=== PATIENT | male | born 1950 | race Caucasian/White ===

== ENCOUNTER → 2019-05-07 | Outpatient (CLI) | payer BC ==
[~2019-05-07] MED LIST: ASCO10004 PO; ASPI-496 PO; ATOR40TA78 PO; FINA5TAB4 PO; LOSA25TA25 PO; NITR50CA11 PO; OMEG10007 PO; TAMS-11 PO
[2019-05-07 14:27] LABS: BASOPHILS # (AUTO) 0.07 x10^3/uL (0-0.1); BASOPHILS % (AUTO) 1 % (0-1); EOSINOPHILS # (AUTO) 0.47 x10^3/uL (0-0.4); EOSINOPHILS % (AUTO) 9 % (1-7); LYMPHOCYTES # (AUTO) 1.51 x10^3/uL (1-3.4); LYMPHOCYTES % (AUTO) 28 % (22-44); MD NO; MEAN CORPUSCULAR HEMOGLOBIN 31.7 pg (27.5-34.5); MEAN CORPUSCULAR HGB CONC 33.9 g/dL (33.2-36.2); MEAN CORPUSCULAR VOLUME 93.5 fL (81-97); MEAN PLATELET VOLUME 9.4 fL (7.4-10.4); MONOCYTES # (AUTO) 0.69 x10^3/uL (0.2-0.8); MONOCYTES % (AUTO) 13 % (2-9); NEUTROPHILS # (AUTO) 2.58 x10^3/uL (1.8-6.8); NEUTROPHILS % (AUTO) 48 % (42-75); PLATELET COUNT 166 x10^3/uL (130-400); RED BLOOD COUNT 5.43 x10^6/uL (4.38-5.82); RED CELL DISTRIBUTION WIDTH 14.1 % (9.4-14.8)
[2019-05-07 14:33] LABS: MICROSCOPIC NOT IND
[2019-05-07 14:39] LABS: ANION GAP 5 mmol/L (5-15); CALCIUM 8.7 mg/dL (8.5-10.1); CHLORIDE 104 mmol/L (98-107)
[2019-05-07 14:42] LABS: ALANINE AMINOTRANSFERASE 68 U/L (12-78); ALKALINE PHOSPHATASE 129 U/L (45-117); BILIRUBIN,TOTAL 1.5 mg/dL (0.2-1.0); CREATININE 0.85 mg/dL (0.7-1.3); TOTAL PROTEIN 7.9 g/dL (6.4-8.2)
[2019-05-07 15:20] LABS: INTERNATIONAL NORMALIZED RATIO 1.05 (0.93-1.1)
== END | disposition home or self-care (01) ==
LOC: STAR 12:45
PROVIDERS: ATTEND Urology
DX: Z01.818 Encounter for other preprocedural examination (principal); N40.1 Benign prostatic hyperplasia with lower urinary tract symptoms; Z87.891 Personal history of nicotine dependence; Z82.49 Family history of ischemic heart disease and other diseases of the circulatory system
CPT/HCPCS: 36415; 80053; 81003; 85025; 85610; 85730; 87086; 93005

== ENCOUNTER 2019-05-14 08:55 | Inpatient (IN) | payer BC, MEDICARE ==
[~2019-05-14] VITALS: Ht 172.7 cm; Wt 100.0 kg
[~2019-05-14 08:55] MED LIST changes: +CEFAZOLIN 1,000 MG ONE; +FENTANYL PF 250 MCG/5ML ONE; +GLYCOPYRROLATE 0.2MG/1ML, 5ML ONE; +MIDAZOLAM 1 MG/ML, 2ML ONE; +NEOSTIGMINE 1 MG/ML, 10ML ONE; +PROPOFOL 10 MG/ML, 20ML ONE; +ROCURONIUM 10MG/ML,5ML ONE
[2019-05-14 09:28] VITALS: BP 138/92
[2019-05-14] MEDS ORDERED: ACETAMINOPHEN 500 MG TABLET PO ONE (09:30)
[2019-05-14] MEDS ORDERED: LACTATED RINGERS 1,000 ML IV SCH (09:30)
[2019-05-14] MEDS ORDERED: GABAPENTIN 300 MG CAPSULE PO ONE (09:30)
[2019-05-14] MEDS ORDERED: BUPIVACAINE/PF 0.25% ONE (10:59)
[2019-05-14] MEDS ORDERED: EPINEPHRINE 1 MG/ML, 1ML ONE (10:59)
[2019-05-14] MEDS ORDERED: OPIUM/BELLADONNA SUPP.RECT 16.2-60 MG ONE ×2 (10:59→17:08)
[2019-05-14] MEDS ORDERED: INDIGO CARMINE 0.8%, 5ML ONE (10:59)
[2019-05-14] MEDS ORDERED: THROMBIN (RECOMBINANT) 5,000 UNIT VIAL TP ONE (11:23)
[2019-05-14] MEDS ORDERED: ONDANSETRON 2MG/ML, 2ML IV PRN ×2 (12:30→19:00)
[2019-05-14] MEDS ORDERED: OXYcodone 5 MG/5 ML ORAL.SOL UDC PO PRN (12:30)
[2019-05-14] MEDS ORDERED: HYDROmorphone 2 MG/ML, 1ML IVPush PRN (12:30)
[2019-05-14] MEDS ORDERED: FENTANYL PF 100 MCG/2ML IV PRN (12:30)
[2019-05-14] MEDS ORDERED: MEPERIDINE/PF 25MG/ML,1ML IVPush PRN (12:30)
[2019-05-14] MEDS ORDERED: hydrALAzine 20 MG/ML, 1ML IV PRN (12:30)
[2019-05-14] MEDS ORDERED: LABETALOL 5MG/ML, 20ML IV PRN (12:30)
[2019-05-14] MEDS ORDERED: MORPHINE SULFATE 4 MG/ML, 1ML IVPush PRN (12:30)
[2019-05-14] MEDS ORDERED: ALBUTEROL SULFATE 2.5 MG/3 ML NPPB PRN (12:30)
[2019-05-14] MEDS ORDERED: ROCURONIUM 10MG/ML,5ML ONE (13:05)
[2019-05-14] MEDS ORDERED: FENTANYL PF 100 MCG/2ML ONE ×3 (14:57→15:27)
[2019-05-14] MEDS ORDERED: OPIUM/BELLADONNA SUPP.RECT 16.2-60 MG PR PRN ×2 (17:30→19:00)
[2019-05-14 17:41] VITALS: BP 134/90
[2019-05-14] MEDS: ACETAMINOPHEN 500 MG TABLET PO SCH (18:48)
[2019-05-14] MEDS ORDERED: OXYcodone IR 5MG TABLET PO PRN (19:00)
[2019-05-14 19:31] VITALS: BP 139/89
[2019-05-14] MEDS: D5%-0.45NACL+KCL 20MEQ 1,000 ML IV SCH (19:48)
[2019-05-14] MEDS: ATORVASTATIN 40 MG TABLET PO SCH (20:39)
[2019-05-15 00:20] VITALS: BP 104/71
[2019-05-15] MEDS: D5%-0.45NACL+KCL 20MEQ 1,000 ML IV SCH ×3 (03:38→19:48)
[2019-05-15] MEDS: ACETAMINOPHEN 500 MG TABLET PO SCH ×3 (03:38→19:47)
[2019-05-15] MEDS ORDERED: OPIUM/BELLADONNA SUPP.RECT 16.2-60 MG PR PRN (05:00)
[2019-05-15 07:58] VITALS: BP 112/78
[2019-05-15] MEDS ORDERED: LOSARTAN 25MG TABLET PO SCH (09:00)
[2019-05-15 14:01] VITALS: BP 111/56
[2019-05-15] MEDS ORDERED: SENN-129 PO (14:40)
[2019-05-15 19:27] VITALS: BP 111/75
[2019-05-15] MEDS: ATORVASTATIN 40 MG TABLET PO SCH (19:47)
[2019-05-16] MEDS: ACETAMINOPHEN 500 MG TABLET PO SCH (03:12)
[2019-05-16 03:14] VITALS: BP 145/91
[2019-05-16 07:14] VITALS: BP 147/91
== END 2019-05-16 08:20 | disposition home or self-care (01) | DRG 717 ==
LOC: OUT 08:55 → 4NE 17:26 → OUT 17:29 → 4NE 17:29
PROVIDERS: ADMIT Urology; ATTEND Urology
PROC: 8E0W4CZ Robotic Assisted Procedure of Trunk Region, Percutaneous Endoscopic Approach (ICD-10-PCS; 2019-05-14)
PROC: 0VB04ZZ Excision of Prostate, Percutaneous Endoscopic Approach (ICD-10-PCS; principal; 2019-05-14 11:00)
DX: N40.1 Benign prostatic hyperplasia with lower urinary tract symptoms (principal); N13.8 Other obstructive and reflux uropathy; I25.10 Atherosclerotic heart disease of native coronary artery without angina pectoris; J44.9 Chronic obstructive pulmonary disease, unspecified; G47.33 Obstructive sleep apnea (adult) (pediatric); E78.5 Hyperlipidemia, unspecified; I25.2 Old myocardial infarction; Z79.899 Other long term (current) drug therapy
CPT/HCPCS: 36415; 85014; 85018; 86850; 86900; 88307; 88309; C1729; G0378; J0171; J0690; J2250; J2704; J2710; J3010; J3490; C1760; J3480; J7120

== ENCOUNTER → 2020-05-31 | Outpatient (CLI) | payer BC, MEDICARE ==
[~2020-05-31] MED LIST changes: +ASCO100018 PO; -ASCO10004 PO; -CEFAZOLIN 1,000 MG ONE; -FENTANYL PF 250 MCG/5ML ONE; -GLYCOPYRROLATE 0.2MG/1ML, 5ML ONE; -MIDAZOLAM 1 MG/ML, 2ML ONE; -NEOSTIGMINE 1 MG/ML, 10ML ONE; -PROPOFOL 10 MG/ML, 20ML ONE; -ROCURONIUM 10MG/ML,5ML ONE; +SENN-129 PO
[2020-05-31 11:48] LABS: BASOPHILS % (AUTO) 2 % (0-1); EOSINOPHILS % (AUTO) 8 % (1-7); LYMPHOCYTES % (AUTO) 27 % (22-44); MEAN CORPUSCULAR HEMOGLOBIN 30.8 pg (27.5-34.5); MEAN CORPUSCULAR HGB CONC 33.4 g/dL (33.2-36.2); MONOCYTES % (AUTO) 12 % (2-9); NEUTROPHILS % (AUTO) 51 % (42-75); PLATELET COUNT 181 x10^3/uL (130-400); RED BLOOD COUNT 5.82 x10^6/uL (4.38-5.82); RED CELL DISTRIBUTION WIDTH 13.6 % (9.4-14.8)
[2020-05-31 11:49] LABS: MD NO
[2020-05-31 11:57] LABS: CALCIUM 9.1 mg/dL (8.5-10.1); CHLORIDE 104 mmol/L (98-107)
[2020-05-31 12:03] LABS: ALANINE AMINOTRANSFERASE 67 U/L (12-78); ALKALINE PHOSPHATASE 93 U/L (45-117); ANION GAP 6 mmol/L (5-15); BILIRUBIN,TOTAL 0.9 mg/dL (0.2-1.0); CREATININE 0.99 mg/dL (0.7-1.3)
== END | disposition home or self-care (01) ==
LOC: STAR 09:49
PROVIDERS: ATTEND Otolaryngology Plastic Surgery within the Head & Neck
DX: Z01.812 Encounter for preprocedural laboratory examination (principal); Z20.828 Contact with and (suspected) exposure to other viral communicable diseases; I25.2 Old myocardial infarction
CPT/HCPCS: 36415; 80053; 85025; 87635; 93005